=== PATIENT | male | born 1955 | race Caucasian/White ===

== ENCOUNTER 2018-02-26 09:54 | Emergency (ER) | payer OTHER ==
--- NOTE | 2018-02-26 09:57 | PDOC ---
History of Present Illness - General Chief Complaint: Pain Stated Complaint: ABD PAIN Time Seen by Provider: 02/26/18 09:56 Past History - Past Medical History Allergies/Adverse Reactions: Allergies Allergy/AdvReac Type Severity Reaction Status Date / Time doxycycline Allergy Verified 02/26/18 09:55
--- NOTE | 2018-02-26 09:59 | PDOC ---
Attending Attestation - Resident Resident Name: IzaMorena - ED Attending Attestation I have performed the following: I have examined & evaluated the patient, The case was reviewed & discussed with the resident, I agree w/resident's findings & plan, Exceptions are as noted - HPI HPI: 02/26/18 10:18 62yo male with hx of NSTEMI/afib on elaquis with acute onset of R flank pain that radiates to R groin. Had a small amount of hematuria just before the pain started. Also with dysuria. No f/c. +nausea. No cp/sob. No diarrhea. No vomiting. Colicky pain to R flank. - Physicial Exam PE: 02/26/18 10:19 Gen: aaox3, uncomfortable, tossing in the stretcher Heart: +s1s2 irreg lungs: cta b/l abd: soft, R cva ttp, suprapubic ttp, neg mcburneys point, neg murphys, no palpable mass in abd ext: no c/c/e neuro: no focal neuro findings, ambulates with a steady gait - Medical Decision Making 02/26/18 09:59 I, Dr. Elidia Masters, DO, attest that this document has been prepared under my direction and personally reviewed by me in its entirety. I further attest, that it accurately reflects all work, treatment, procedures and medical decision -making performed by me. 02/26/18 10:21 a/p: 62yo male with R flank pain -suspect renal colic/kidney stone with a poss uti -first time with a stone, will obtain spiral ct abd/pelvis -will send ua, cbc, chem -will hydrate, pain control, nausea control 02/26/18 11:10 mildly elevated glucose, will need a fasting glucose repeated by his PMD as an outpt 02/26/18 11:29 pt with a 4mm stone, no obstruction renal function normal pending ua pain controlled at this time 02/26/18 11:36 no uti - urine ph elevated, +protein, +bilirubin +blood pt follows with urology for enlarged prostate resident discussed ct findings with the patient will need repeat ua as outpt, will need repeat glucose as outpt will need to follow up with urology only wants to take tylenol for home no pain currently given strainer and discussed straining urine as outpt and taking stone to urology answered all questions stable for d/c to home
[2018-02-26] MEDS ORDERED: KETOROLAC TROMETHAMINE 30 MG/1 ML VIAL IVPUSH ONE (10:07)
[2018-02-26] MEDS ORDERED: SODIUM CHLORIDE 0.9% 500 ML INFUS.BAG IV ONE (10:07)
[2018-02-26] MEDS ORDERED: ONDANSETRON 4 MG/2 ML VIAL IVPUSH ONE (10:07)
[2018-02-26] MEDS ORDERED: KETOROLAC TROMETHAMINE 30 MG/1 ML VIAL ONE (10:13)
[2018-02-26] MEDS ORDERED: ONDANSETRON 4 MG/2 ML VIAL ONE (10:13)
--- NOTE | 2018-02-26 10:17 | PDOC ---
History of Present Illness - General Chief Complaint: Pain Stated Complaint: ABD PAIN Time Seen by Provider: 02/26/18 09:56 History Source: Patient Exam Limitations: No Limitations - History of Present Illness Initial Comments: 02/26/18 10:09 62 YOM with h/o right inguinal hernia repair 5 yrs ago without complication, chronic right testicular cyst, CAD, NSTEMI, A-fib, on AC, who p/w RLQ pain radiating to his right flank, onset about 8 am today, feels sharp and 10/10. No reported h/o kidney stones, no prior similar symptoms in his life, no known h/o AAA, no prior appendectomy. Did not take medications this morning for the pain. Feels nauseated, slightly sweaty, light pink hematuria this morning, otherwise no new symptoms. Past History - Past Medical History Allergies/Adverse Reactions: Allergies Allergy/AdvReac Type Severity Reaction Status Date / Time doxycycline Allergy Verified 02/26/18 09:55 Home Medications: Ambulatory Orders Apixaban [Eliquis -] 5 mg PO DAILY 02/26/18 Aspirin [ASA -] 81 mg PO DAILY 02/26/18 Duloxetine HCl [Cymbalta] 20 mg PO DAILY 02/26/18 Dutasteride [Avodart] 0.5 mg PO DAILY 02/26/18 Folic Acid 1 mg PO DAILY 02/26/18 Hydroxychloroquine Sulfate [Plaquenil] 200 mg PO DAILY 02/26/18 Metoprolol Tartrate 25 mg PO BID 02/26/18 Montelukast Sodium [Singulair] 10 mg PO DAILY 02/26/18 Prednisone [Deltasone] 40 mg PO DAILY 02/26/18 Tamsulosin HCl [Flomax] 0.4 mg PO DAILY 02/26/18 Review of Systems - Review of Systems Able to Perform ROS?: Yes Comments:: 02/26/18 10:12 GEN: sweats; no fever, chills, generalized weakness, malaise, unintentional weight change, loss of appetite, or difficulty sleeping HEENT: no ear pain, congestion, sore throat, rhinorrhea, nosebleed, vision change, or eye pain CV: no chest pain, palpitations, syncope, edema, or exercise intolerance RESP: no cough, wheezing, or SOB GI: nausea, abdominal pain; no vomiting, diarrhea, constipation, black/bloody stool, or appetite change : hematuria; no dysuria, frequency, incontinence, retention, pruritis, bleeding, or discharge MSK: no weakness, joint swelling, limping, joint pain, or muscle pain NEURO: no headaches, seizures, numbness, tingling, focal weakness, or head trauma PSYCH: no insomnia, behavior change, suicidality, homicidality, or substance use SKIN: no jaundice, rashes, cuts, bruises, scars, or lesions *Physical Exam - Vital Signs 02/26/18 10:13 Initial Vital Signs Temp Pulse Resp BP Pulse Ox 98.2 F 72 20 149/88 100 02/26/18 09:55 02/26/18 09:55 02/26/18 09:55 02/26/18 09:55 02/26/18 09:55 GENERAL: moderate distress, intermittently rubbing low abdomen with hand, otherwise nontoxic-appearing, nourished, A/Ox4, speaking in full sentences, answers questions appropriately, accompanied by HEENT: PERRLA, EOMI, moist mucous membranes, CARDIOVASCULAR: irregularly irregular rhythm stated chronic, normal S1S2, no MGR , radial and DP pulses 2+ and symmetric, capillary refill <2 seconds, extremities warm and well-perfused LUNGS/RESPIRATORY: initially slightly tachypneic likely 2/2 pain, no respiratory distress, normal and symmetric chest movements during respirations, lungs CTA bilaterally, equal breath sounds, no cyanosis, no nail clubbing GI/ABDOMEN: symmetric appearance, normoactive bowel sounds, soft, minimal tenderness to palpation RLQ, no midline pulsatile masses, no palpated organomegaly : right CVA tenderness, no left CVA tenderness, normal external testicular and penile appearance, no lesions, cremasteric reflexes intact, testicles nontender, no inguinal hernias palpated, normal testicular lay BACK: no midline ttp or stepoff or deformity of thoracic or lumbar spine EXTREMITIES: distal pulses 2+, warm and well-perfused, no LE edema SKIN: warm and dry, no pallor, no jaundice, no bruising, no rash, no skin breakdown, no cuts, no lesions NEUROLOGICAL: GCS 15, CN II-XII grossly intact, ambulating with normal gait, moving all extremities, 5/5 strength proximally and distally, no facial droop, no decreased sensation ED Treatment Course - LABORATORY CBC & Chemistry Diagram: 02/26/18 10:31 02/26/18 10:31 - RADIOLOGY Radiology Studies Ordered: Category Date Time Status SPIRAL- RENAL-STONE CT [CT] Stat CT Scan 02/26/18 10:07 Ordered Medical Decision Making - Medical Decision Making 02/26/18 10:17 Pt p/w severe flank pain. Initial Vital Signs Temp Pulse Resp BP Pulse Ox 98.2 F 72 20 149/88 100 02/26/18 09:55 02/26/18 09:55 02/26/18 09:55 02/26/18 09:55 02/26/18 09:55 Exam: As noted in Physical Exam section. DDX IBNLT: very likely ureteral calculus. Less likely obstructive uropathy, UTI/ pyelonephritis, rental artery aneurysm or dissection (teodora w/ hematuria and no stone visualized on imaging), ACS, AAA/AD, pneumothorax, PE, cholecystitis, cholangitis, pancreatitis, gastritis, PUD, colitis, ruptured diverticulosis, diverticulitis wwo abscess or perforation, appendicitis, hernia, SBO, malignancy , splenic infarction, mesenteric ischemia, bowel perforation, testicular torsion , epididymitis, orchitis, urethritis, musculoskeletal, constipation, etc. W/U ordered: Spiral CT [place] ordered: IVF, Toradol, Zofran 02/26/18 10:26 Patient remains painful; I have ordered 1 [address]. Sp[address]: Right 4 mm stone at UVJ versus already in the bladder, mild right hydronephrosis. Laboratory Tests 02/26/18 02/26/18 02/26/18 10:31 10:31 10:31 WBC 9.5 RBC 5.02 Hgb 15.0 Hct 46.4 MCV 92.4 MCH 29.9 MCHC 32.3 RDW 13.9 Plt Count 293 MPV 8.8 Absolute Neuts (auto) 6.9 Neutrophils % 73.2 Lymphocytes % 13.2 Monocytes % 9.2 Eosinophils % 4.0 Basophils % 0.4 PT with INR INR Sodium 138 Potassium 4.3 Chloride 103 Carbon Dioxide 21 L Anion Gap 14 BUN 25 H Creatinine 1.0 Creat Clearance w eGFR > 60 Random Glucose 178 H Calcium 9.6 Total Bilirubin 0.6 AST 27 ALT 22 Alkaline Phosphatase 72 Total Protein 6.6 Albumin 3.9 Urine Color Brown Urine Appearance Cloudy Urine pH >= 9.0 H Ur Specific Romeo 1.015 Urine Protein 2+ H Urine Glucose (UA) Negative Urine Ketones 3+ H Urine Blood 3+ H Urine Nitrite Negative Urine Bilirubin 1+ H Urine Urobilinogen 0.2 Ur Leukocyte Esterase Negative 02/26/18 10:31 WBC RBC Hgb Hct MCV MCH MCHC RDW Plt Count MPV Absolute Neuts (auto) Neutrophils % Lymphocytes % Monocytes % Eosinophils % Basophils % PT with INR 15.0 H INR 1.35 H Sodium Potassium Chloride Carbon Dioxide Anion Gap BUN Creatinine Creat Clearance w eGFR Random Glucose Calcium Total Bilirubin AST ALT Alkaline Phosphatase Total Protein Albumin Urine Color Urine Appearance Urine pH Ur Specific Romeo Urine Protein Urine Glucose (UA) Urine Ketones Urine Blood Urine Nitrite Urine Bilirubin Urine Urobilinogen Ur Leukocyte Esterase BG a bit high and patient is counseled on f/u with PCP. UA protein and pH is a bit high and patient is counseled on f/u with Urology. 02/26/18 11:37 This patient has gotten significant relief of symptoms while in the ED. On last reassessment, vitals are wnl, pain is reasonably controlled, and exam is benign. Workup is not concerning for emergency-level pathology at this time. This patient is appropriate for discharge with close outpatient follow up. They are comfortable with this plan and will follow up with their primary care provider and urologist. The patient already has a urologist. They are counseled to stay well-hydrated. Specific return precautions are discussed and they will come back to the ER if necessary. *DC/Admit/Observation/Transfer Diagnosis at time of Disposition: Ureteral calculus, right - Discharge Dispostion Disposition: HOME Condition at time of disposition: Stable Decision to Admit order: No - Referrals - Patient Instructions Printed Discharge Instructions: DI for Kidney Stones Additional Instructions: You were seen in the ER for a kidney stone. We gave you medications and IV fluids which helped your symptoms. We did labs and a CT scan and saw evidence of the stone, but at the time of the CT scan it looks like the stone may be already in the bladder. After our assessment, we do not believe you are having a medical emergency at this time, and we believe you are safe to go home. Please take over the counter pain medications for pain, following the instructions on the medication label. Stay very well hydrated. Please follow up with your primary care provider or Urologist within a week. Call their clinic [facility], tell them you were seen in the ER, and tell them you need an appointment. Please come back to the ER at any time, 24 hours a day, for any new or worsening symptoms, like worsening pain unrelieved with medications, fever, inability to urinate, burning on urination, testicular pain or swelling, or other symptoms. If you are having severe or life threatening symptoms, or symptoms that make it unsafe to drive or have someone drive you, please call 911. Just a note: please also follow up with your PCP regarding your blood glucose. It was a little high today at 178, and this was a fasting blood glucose. You should have your PCP repeat this fasting blood glucose to make sure you are not at risk for diabetes mellitus. You should also see your urologist to repeat your urine analysis because there was some protein in the sample today, and the pH was a little high. - Post Discharge Activity
[2018-02-26] MEDS ORDERED: HYDROmorphone HCL CARPU-JECT 1 MG/1 ML DISP.SYRIN ONE (10:26)
[2018-02-26] MEDS ORDERED: HYDROmorphone HCL CARPU-JECT 1 MG/1 ML DISP.SYRIN IVPUSH ONE (10:26)
[2018-02-26 10:29] VITALS: BP 149/88; PULSE 72; TEMP 98.2; BMI 31.7
[2018-02-26 10:42] LABS: BASO % 0.4 % (0-2.0); HEMATOCRIT 46.4 % (35.4-49); LYMPH % 13.2 % (8-40); MCH 29.9 pg (25.7-33.7); MCHC 32.3 g/dl (32.0-35.9); MEAN CELL VOLUME 92.4 fl (80-96); MEAN PLT VOLUME 8.8 fl (7.5-11.1); MONO % 9.2 % (3.8-10.2); NEUT % 73.2 % (42.8-82.8); PLATELET COUNT 293 K/MM3 (134-434); RBC 5.02 M/mm3 (4.00-5.60); RDW 13.9 % (11.9-15.9); WHITE BLOOD COUNT 9.5 K/mm3 (4.0-10.8)
[2018-02-26 10:46] LABS: INR 1.35 (0.82-1.09)
[2018-02-26 10:51] LABS: ALBUMIN 3.9 g/dl (3.5-5.0); ALK PHOS 72 U/L (32-92); ANION GAP 14 MMOL/L (8-16); BILIRUBIN,TOTAL 0.6 mg/dl (0.2-1.0); BLOOD UREA NITROGEN 25 mg/dl (7-18); CALCIUM 9.6 mg/dl (8.4-10.2); CHLORIDE 103 mmol/L (98-107); CO2 21 mmol/L (22-28); GLUCOSE,RANDOM 178 mg/dl (74-106); POTASSIUM 4.3 mmol/L (3.5-5.1); SGOT/AST 27 U/L (10-42); SGPT/ALT 22 U/L (10-40); SODIUM 138 mmol/L (136-145); TOT PROT 6.6 g/dl (6.4-8.3)
[2018-02-26 11:31] LABS: PH,URINE >= 9.0 (4.5-8); URINE APPEARANCE Cloudy; URINE BILIRUBIN 1+ (NEGATIVE); URINE COLOR Brown; URINE GLUCOSE (UA) Negative (NEGATIVE); URINE KETONE 3+ (NEGATIVE); URINE LEUK ESTERASE Negative (NEGATIVE); URINE NITRITE Negative (NEGATIVE); URINE PROTEIN 2+ (NEGATIVE); URINE UROBILINOGEN 0.2 (0.2-1.0)
[2018-02-26 11:39] LABS: URINE RBC >100 /hpf (0-3)
== END 2018-02-26 11:45 | disposition home or self-care (01) ==
LOC: FER 09:54
PROC: 3E033NZ Introduction of Analgesics, Hypnotics, Sedatives into Peripheral Vein, Percutaneous Approach (ICD-10-PCS; principal; 2018-02-26)
PROC: 3E0333Z Introduction of Anti-inflammatory into Peripheral Vein, Percutaneous Approach (ICD-10-PCS; 2018-02-26)
PROC: 3E033GC Introduction of Other Therapeutic Substance into Peripheral Vein, Percutaneous Approach (ICD-10-PCS; 2018-02-26)
PROC: 3E0337Z Introduction of Electrolytic and Water Balance Substance into Peripheral Vein, Percutaneous Approach (ICD-10-PCS; 2018-02-26)
DX: N20.1 Calculus of ureter (principal); I48.91 Unspecified atrial fibrillation; Z79.01 Long term (current) use of anticoagulants; I25.10 Atherosclerotic heart disease of native coronary artery without angina pectoris; I25.2 Old myocardial infarction
CPT/HCPCS: 36415; 74176; 80053; 81003; 81015; 85025; 85610; 99283-25